=== PATIENT | female | born 1955 | race Caucasian/White ===

== ENCOUNTER 2016-08-25 09:51 | Day surgery (SDC) | payer OTHER ==
[~2016-08-25] VITALS: Ht 170.2 cm; Wt 95.0 kg
[2016-08-25 10:40] VITALS: Ht 170.2 cm; Wt 95.0 kg
[2016-08-25] MEDS ORDERED: ULT50 PO (10:51)
[2016-08-25] MEDS ORDERED: GABA300C16 PO (10:51)
[2016-08-25] MEDS ORDERED: IBUP800T25 PO (10:51)
[2016-08-25] MEDS ORDERED: BENA5TAB2 PO (10:51)
[2016-08-25] MEDS ORDERED: PROPOFOL 20 ML ONE (10:55)
[2016-08-25 11:02] VITALS: BP 119/60; PULSE 85; RESP 18
[2016-08-25 11:13] VITALS: BP 110/57; PULSE 83; RESP 22
[2016-08-25 12:00] VITALS: BP 101/49; PULSE 72; RESP 20
--- NOTE | 2016-08-26 01:30 | GILP ---
DATE OF PROCEDURE: NAME OF PROCEDURES: Colonoscopy and biopsy. SURGEON: Molly Chavez MD PREOPERATIVE DIAGNOSIS: Screening colonoscopy. POSTOPERATIVE DIAGNOSES: 1. Colonoscopy all the way to the cecum. 2. Small transverse colon polyp was removed using the biopsy forceps. 3. Diverticulosis of the colon. 4. Internal hemorrhoids. INDICATION FOR THE PROCEDURE: Ms. Corrine Cantu is a 60-year-old female patient who had family history of colon cancer. She was scheduled for screening colonoscopy. The procedure and possible complications were well explained to the patient. She understood and con sented to the procedure. DESCRIPTION OF PROCEDURE: Under the influence of anesthesia, the colonoscope was carefully introduc ed in the rectum and, under direct vision, it was advanced all the way to the cecum. FINDINGS: The patient had a small transverse colon polyp and it was removed using the biopsy forcep s. She was noted to have diverticulosis of the colon and internal hemorrhoids. She tolerated the procedure very well and there was no complication from the procedure. At the end of the procedure, she was awake with stable vital signs and she was discharged home to the care of h er family. IMPRESSION: 1. Colonoscopy all the way to the cecum. 2. Small transverse colon polyp was removed using the biopsy forceps. 3. Diverticulosis of the colon. 4. Internal hemorrhoids. PLAN: 1. Await histopathology report. 2. Next screening colonoscopy in 5 years because of the family history of colon cancer. Dictated By: MOLLY TURK/NTS Conf#: [id number] DID#: [id number] CC: MOLLY CHAVEZ MD;*EndCC*
== END 2016-08-25 12:13 | disposition home or self-care (01) ==
LOC: GIL 09:51
PROVIDERS: ATTEND Internal Medicine Gastroenterology
DX: Z12.11 Encounter for screening for malignant neoplasm of colon (principal); D12.3 Benign neoplasm of transverse colon; K57.90 Diverticulosis of intestine, part unspecified, without perforation or abscess without bleeding; K64.8 Other hemorrhoids; E66.9 Obesity, unspecified; Z68.32 Body mass index [BMI] 32.0-32.9, adult
CPT/HCPCS: 45380; 88305; Z7610